=== PATIENT | male | born 1965 | race Caucasian/White ===

== ENCOUNTER 2016-06-05 20:24 | Inpatient (IN) | payer MEDICAID, OTHER ==
[~2016-06-05] VITALS: Ht 180.3 cm; Wt 129.3 kg
[~2016-06-05 20:24] MED LIST: ASPI-556 PO; CARV25TA32 PO; FERR324T4 PO; HYDR-4173 PO; NIFE10 PO
[2016-06-05] MEDS ORDERED: LISI-661 PO (21:08)
[2016-06-05] MEDS ORDERED: OMEG300C3 PO (21:08)
[2016-06-05] MEDS ORDERED: AMLO-511 PO (21:08)
[2016-06-05 21:17] LABS: GLUCOSE,POINT OF CARE 249 MG/DL (70-110)
[2016-06-05 21:45] LABS: BASOPHILS # (AUTO) 0.02 K/uL (0.00-0.20); BASOPHILS % (AUTO) 0.3 % (0.0-2.0); EOSINOPHILS % (AUTO) 4.31 % (1.0-6.0); HEMATOCRIT 24.4 % (41-53); LYMPHOCYTES # (AUTO) 1.5 K/uL (1.0-4.8); LYMPHOCYTES % (AUTO) 21.7 % (22.0-44.0); MEAN CORPUSCULAR HGB CONC 32.9 G/dL (31.0-37.0); MEAN CORPUSCULAR VOLUME 91 fL (80-100); MONOCYTES # (AUTO) 0.5 K/uL (0.1-1.0); MONOCYTES % (AUTO) 7.3 % (2.0-9.0); NEUTROPHILS # (AUTO) 4.7 K/uL (1.8-7.7); NEUTROPHILS % (AUTO) 66.4 % (40.0-70.0); PLATELET COUNT (AUTO) 173 K/uL (150-450); RED BLOOD CELL COUNT(AUTO) 2.68 MIL/uL (4.50-5.90); RED CELL DISTRIBUTION WIDTH 14.3 % (11.5-14.5)
[2016-06-05 21:57] LABS: ALBUMIN 3.3 g/dL (3.4-5.0); BILIRUBIN,TOTAL 0.1 mg/dL (0.1-1.0); CALCIUM, TOTAL 8.2 mg/dL (8.8-10.5); CREATININE 4.77 mg/dL (0.60-1.30); TOTAL PROTEIN, SERUM 7.9 g/dL (6.4-8.2)
[2016-06-05 21:59] LABS: POTASSIUM 6.7 mmol/L (3.5-5.1)
[2016-06-05 22:00] LABS: PROTHROMBIN TIME 10.4 SEC (9.4-11.6)
[2016-06-05] MEDS ORDERED: SODIUM POLYSTYRENE SULFONATE 15 GM/60 ML SUSPENSION BOTTLE PO ONE ×2 (23:00→23:15)
[2016-06-05] MEDS ORDERED: CALCIUM GLUCONATE 1,000 MG in DEXTROSE 5%-WATER 50 ML IV ONE (23:00)
[2016-06-05] MEDS ORDERED: INSULIN REGULAR, HUMAN 100 UNITS/ML SQ ONE (23:15)
[2016-06-05] MEDS ORDERED: ACETAMINOPHEN 325 MG TABLET PO PRN (23:15)
[2016-06-05] MEDS ORDERED: DEXTROSE 50%-WATER 25 GM/50 ML SYRINGE IVP ONE (23:15)
[2016-06-05] MEDS ORDERED: OxyCODONE HCL/ACETAMINOPHEN 5-325 MG TABLET PO PRN (23:15)
[2016-06-05] MEDS ORDERED: ZOLPIDEM TARTRATE 10 MG TABLET PO PRN (23:15)
[2016-06-05] MEDS ORDERED: SODIUM BICARBONATE 75 MEQ in SODIUM CHLORIDE 0.45% 1,000 ML IV ONE (23:15)
[2016-06-05] MEDS ORDERED: AmLODIPine BESYLATE 5 MG TABLET PO ONE (23:45)
[2016-06-05] MEDS: HEPARIN SODIUM,PORCINE 5,000 UNITS/ML VIAL SQ SCH (23:46)
[2016-06-06] VITALS (7 sets, daily range): BP systolic 135–158; BP diastolic 72–91
[2016-06-06] MEDS ORDERED: DEXTROSE 50%-WATER 25 GM/50 ML SYRINGE IVP PRN (00:30)
[2016-06-06 04:33] LABS: ALBUMIN 3.2 g/dL (3.4-5.0); BILIRUBIN,TOTAL 0.2 mg/dL (0.1-1.0); CALCIUM, TOTAL 8.3 mg/dL (8.8-10.5); CHOL/HDL RATIO 4.7 (4.2-7.3); CREATININE 4.3 mg/dL (0.60-1.30); POTASSIUM 5.8 mmol/L (3.5-5.1); THYROID STIMULATING HORMONE 1.92 uIU/mL (0.36-3.74); TOTAL PROTEIN, SERUM 7.5 g/dL (6.4-8.2)
[2016-06-06 04:45] LABS: BASOPHILS % (AUTO) 0.4 % (0.0-2.0); EOSINOPHILS % (AUTO) 4.8 % (1.0-6.0); HEMATOCRIT 23.8 % (41-53); HEMOGLOBIN 7.6 g/dL (13.5-17.5); LYMPHOCYTES # (AUTO) 1.6 K/uL (1.0-4.8); LYMPHOCYTES % (AUTO) 24.1 % (22.0-44.0); MEAN CORPUSCULAR HEMOGLOBIN 29.4 pg (26.0-34.0); MEAN CORPUSCULAR VOLUME 92 fL (80-100); MONOCYTES # (AUTO) 0.5 K/uL (0.1-1.0); MONOCYTES % (AUTO) 8.3 % (2.0-9.0); NEUTROPHILS # (AUTO) 4.1 K/uL (1.8-7.7); NEUTROPHILS % (AUTO) 62.4 % (40.0-70.0); PLATELET COUNT (AUTO) 179 K/uL (150-450); RED BLOOD CELL COUNT(AUTO) 2.59 MIL/uL (4.50-5.90); WHITE BLOOD COUNT (AUTO) 6.6 K/uL (4.5-11.0)
[2016-06-06 05:45] LABS: HEMOGLOBIN A1C 6.7 % (4.5-6.2)
[2016-06-06] MEDS: HEPARIN SODIUM,PORCINE 5,000 UNITS/ML VIAL SQ SCH ×2 (08:33→17:50)
[2016-06-06] MEDS: PANTOPRAZOLE SODIUM 40 MG DR TABLET PO SCH (08:33)
[2016-06-06] MEDS: FERROUS SULFATE 325 MG EC TABLET PO SCH (08:33)
[2016-06-06] MEDS: ASPIRIN 81 MG EC TABLET PO SCH (08:33)
[2016-06-06] MEDS ORDERED: AmLODIPine BESYLATE 5 MG TABLET PO SCH (09:00)
[2016-06-06] MEDS ORDERED: LISINOPRIL 10 MG TABLET PO SCH (09:00)
[2016-06-06 09:38] LABS: CALCIUM, TOTAL 7.8 mg/dL (8.8-10.5); CREATININE 3.94 mg/dL (0.60-1.30); MAGNESIUM 1.9 mg/dL (1.80-2.40); POTASSIUM 5.6 mmol/L (3.5-5.1)
[2016-06-06] MEDS ORDERED: SODIUM POLYSTYRENE SULFONATE 15 GM/60 ML SUSPENSION BOTTLE PO ONE (10:30)
[2016-06-06] MEDS: INSULIN ASPART 100 UNITS/ML SQ PRN ×2 (12:10→17:51)
[2016-06-06] MEDS: EPOETIN ALFA 10,000 UNITS/ML VIAL SQ SCH (12:37)
[2016-06-06] MEDS: SODIUM CHLORIDE 0.45% 1,000 ML IV SCH (13:30)
[2016-06-06] MEDS ORDERED: GuaiFENesin/CODEINE [SUGAR FREE] 200-20MG/10 ML SYRUP UDCUP PO PRN (13:30)
[2016-06-07] MEDS: HEPARIN SODIUM,PORCINE 5,000 UNITS/ML VIAL SQ SCH ×4 (00:15→23:36)
[2016-06-07 01:07] LABS: GLUCOSE COMMENT 1 Received Meds; GLUCOSE,POINT OF CARE 165 MG/DL (70-110)
[2016-06-07] MEDS: SODIUM CHLORIDE 0.45% 1,000 ML IV SCH (02:54)
[2016-06-07 04:05] VITALS: BP 169/79
[2016-06-07 07:09] VITALS: BP 153/77
[2016-06-07 08:09] LABS: BASOPHILS % (AUTO) 0.5 % (0.0-2.0); EOSINOPHILS % (AUTO) 4.4 % (1.0-6.0); HEMATOCRIT 22.1 % (41-53); HEMOGLOBIN 7.2 g/dL (13.5-17.5); LYMPHOCYTES # (AUTO) 1.9 K/uL (1.0-4.8); LYMPHOCYTES % (AUTO) 30.6 % (22.0-44.0); MEAN CORPUSCULAR HEMOGLOBIN 29.8 pg (26.0-34.0); MEAN CORPUSCULAR HGB CONC 32.7 G/dL (31.0-37.0); MEAN CORPUSCULAR VOLUME 91 fL (80-100); MONOCYTES # (AUTO) 0.5 K/uL (0.1-1.0); MONOCYTES % (AUTO) 8.2 % (2.0-9.0); NEUTROPHILS # (AUTO) 3.4 K/uL (1.8-7.7); NEUTROPHILS % (AUTO) 56.3 % (40.0-70.0); PLATELET COUNT (AUTO) 160 K/uL (150-450); RED BLOOD CELL COUNT(AUTO) 2.43 MIL/uL (4.50-5.90); RED CELL DISTRIBUTION WIDTH 13.9 % (11.5-14.5); WHITE BLOOD COUNT (AUTO) 6.1 K/uL (4.5-11.0)
[2016-06-07 08:27] LABS: ALBUMIN 2.8 g/dL (3.4-5.0); BILIRUBIN,TOTAL 0.2 mg/dL (0.1-1.0); CALCIUM, TOTAL 8.1 mg/dL (8.8-10.5); CREATININE 3.26 mg/dL (0.60-1.30); MAGNESIUM 1.8 mg/dL (1.80-2.40); PHOSPHORUS 4.8 mg/dL (2.5-4.9); POTASSIUM 4.2 mmol/L (3.5-5.1)
[2016-06-07] MEDS: PANTOPRAZOLE SODIUM 40 MG DR TABLET PO SCH (09:12)
[2016-06-07] MEDS: FERROUS SULFATE 325 MG EC TABLET PO SCH (09:12)
[2016-06-07] MEDS: ASPIRIN 81 MG EC TABLET PO SCH (09:12)
[2016-06-07] MEDS: AmLODIPine BESYLATE 10 MG TABLET PO SCH (09:12)
[2016-06-07 10:53] VITALS: BP 159/83
[2016-06-07 11:33] LABS: GLUCOSE COMMENT 1 Received Meds; GLUCOSE,POINT OF CARE 135 MG/DL (70-110)
[2016-06-07 11:33] LABS: GLUCOSE COMMENT 1 Received Meds; GLUCOSE,POINT OF CARE 121 MG/DL (70-110)
[2016-06-07] MEDS: SODIUM BICARBONATE 650 MG TABLET PO SCH ×2 (12:54→21:22)
[2016-06-07] MEDS: INSULIN ASPART 100 UNITS/ML SQ PRN ×3 (12:54→20:30)
[2016-06-07 14:50] VITALS: BP 141/82
[2016-06-07 17:47] LABS: GLUCOSE COMMENT 1 Received Meds; GLUCOSE,POINT OF CARE 170 MG/DL (70-110)
[2016-06-07 20:15] VITALS: BP 138/82
[2016-06-07 21:42] LABS: GLUCOSE COMMENT 1 Received Meds; GLUCOSE,POINT OF CARE 195 MG/DL (70-110)
[2016-06-07 23:56] VITALS: BP 167/81
[2016-06-08 03:42] LABS: GLUCOSE,POINT OF CARE 145 MG/DL (70-110)
[2016-06-08 05:49] VITALS: BP 161/90
[2016-06-08 06:13] LABS: BASOPHILS % (AUTO) 0.6 % (0.0-2.0); EOSINOPHILS % (AUTO) 4.8 % (1.0-6.0); HEMATOCRIT 23.2 % (41-53); HEMOGLOBIN 7.6 g/dL (13.5-17.5); LYMPHOCYTES # (AUTO) 2.4 K/uL (1.0-4.8); LYMPHOCYTES % (AUTO) 31.3 % (22.0-44.0); MEAN CORPUSCULAR HEMOGLOBIN 29.8 pg (26.0-34.0); MEAN CORPUSCULAR HGB CONC 32.7 G/dL (31.0-37.0); MEAN CORPUSCULAR VOLUME 91 fL (80-100); MONOCYTES # (AUTO) 0.7 K/uL (0.1-1.0); MONOCYTES % (AUTO) 8.6 % (2.0-9.0); NEUTROPHILS # (AUTO) 4.3 K/uL (1.8-7.7); NEUTROPHILS % (AUTO) 54.7 % (40.0-70.0); PLATELET COUNT (AUTO) 171 K/uL (150-450); RED BLOOD CELL COUNT(AUTO) 2.55 MIL/uL (4.50-5.90); RED CELL DISTRIBUTION WIDTH 13.5 % (11.5-14.5); WHITE BLOOD COUNT (AUTO) 7.8 K/uL (4.5-11.0)
[2016-06-08 07:04] LABS: ALBUMIN 2.9 g/dL (3.4-5.0); BILIRUBIN,TOTAL 0.1 mg/dL (0.1-1.0); CALCIUM, TOTAL 8.1 mg/dL (8.8-10.5); CREATININE 3.01 mg/dL (0.60-1.30); POTASSIUM 4.4 mmol/L (3.5-5.1)
[2016-06-08 07:51] VITALS: BP 179/89
[2016-06-08] MEDS: AmLODIPine BESYLATE 10 MG TABLET PO SCH (08:31)
[2016-06-08] MEDS: SODIUM BICARBONATE 650 MG TABLET PO SCH ×2 (08:31→20:52)
[2016-06-08] MEDS: PANTOPRAZOLE SODIUM 40 MG DR TABLET PO SCH (08:31)
[2016-06-08] MEDS: ASPIRIN 81 MG EC TABLET PO SCH (08:31)
[2016-06-08] MEDS: HEPARIN SODIUM,PORCINE 5,000 UNITS/ML VIAL SQ SCH ×2 (08:31→17:29)
[2016-06-08] MEDS: FERROUS SULFATE 325 MG EC TABLET PO SCH (08:31)
[2016-06-08] MEDS: INSULIN ASPART 100 UNITS/ML SQ PRN ×3 (12:00→20:55)
[2016-06-08 12:02] VITALS: BP 165/81
[2016-06-08 17:20] VITALS: BP 166/75
[2016-06-08 20:15] VITALS: BP 159/79
[2016-06-08 23:40] VITALS: BP 158/87
[2016-06-09] VITALS (11 sets, daily range): BP systolic 137–169; BP diastolic 66–88
[2016-06-09 00:37] LABS: GLUCOSE COMMENT 1 Received Meds; GLUCOSE,POINT OF CARE 176 MG/DL (70-110)
[2016-06-09 00:37] LABS: GLUCOSE COMMENT 1 Received Meds; GLUCOSE,POINT OF CARE 160 MG/DL (70-110)
[2016-06-09] MEDS: HEPARIN SODIUM,PORCINE 5,000 UNITS/ML VIAL SQ SCH ×3 (00:50→17:38)
[2016-06-09 06:55] LABS: BASOPHILS % (AUTO) 0.4 % (0.0-2.0); EOSINOPHILS % (AUTO) 4.5 % (1.0-6.0); HEMATOCRIT 22.5 % (41-53); HEMOGLOBIN 7.3 g/dL (13.5-17.5); LYMPHOCYTES # (AUTO) 2.5 K/uL (1.0-4.8); LYMPHOCYTES % (AUTO) 30.8 % (22.0-44.0); MEAN CORPUSCULAR HEMOGLOBIN 29.5 pg (26.0-34.0); MEAN CORPUSCULAR HGB CONC 32.4 G/dL (31.0-37.0); MEAN CORPUSCULAR VOLUME 91 fL (80-100); MONOCYTES # (AUTO) 0.7 K/uL (0.1-1.0); MONOCYTES % (AUTO) 8.3 % (2.0-9.0); NEUTROPHILS # (AUTO) 4.5 K/uL (1.8-7.7); PLATELET COUNT (AUTO) 171 K/uL (150-450); RED BLOOD CELL COUNT(AUTO) 2.47 MIL/uL (4.50-5.90); RED CELL DISTRIBUTION WIDTH 13.7 % (11.5-14.5); WHITE BLOOD COUNT (AUTO) 8.1 K/uL (4.5-11.0)
[2016-06-09 07:23] LABS: ALBUMIN 2.7 g/dL (3.4-5.0); BILIRUBIN,TOTAL 0.2 mg/dL (0.1-1.0); CALCIUM, TOTAL 8.2 mg/dL (8.8-10.5); CREATININE 3.02 mg/dL (0.60-1.30); POTASSIUM 4.1 mmol/L (3.5-5.1); TOTAL PROTEIN, SERUM 6.8 g/dL (6.4-8.2)
[2016-06-09 07:32] LABS: GLUCOSE,POINT OF CARE 103 MG/DL (70-110)
[2016-06-09] MEDS: ASPIRIN 81 MG EC TABLET PO SCH (08:06)
[2016-06-09] MEDS: PANTOPRAZOLE SODIUM 40 MG DR TABLET PO SCH (08:06)
[2016-06-09] MEDS: SODIUM BICARBONATE 650 MG TABLET PO SCH (08:07)
[2016-06-09] MEDS: FERROUS SULFATE 325 MG EC TABLET PO SCH (08:07)
[2016-06-09] MEDS: AmLODIPine BESYLATE 10 MG TABLET PO SCH (08:07)
[2016-06-09] MEDS: EPOETIN ALFA 10,000 UNITS/ML VIAL SQ SCH (08:08)
[2016-06-09] MEDS ORDERED: SODIUM BICARBONATE 650 MG TABLET PO SCH (09:00)
[2016-06-09] MEDS ORDERED: LISINOPRIL 5 MG TABLET PO SCH (09:00)
[2016-06-09] MEDS ORDERED: HydrALAZINE HCL 20 MG/ML VIAL IVP ONE (11:00)
[2016-06-09] MEDS: INSULIN ASPART 100 UNITS/ML SQ PRN ×2 (12:00→17:44)
[2016-06-09] MEDS ORDERED: SODIUM CHLORIDE 0.9% 250 ML IV ONE (13:06)
[2016-06-09] MEDS ORDERED: FERR-89 PO (18:37)
[2016-06-09] MEDS ORDERED: LISI-660 PO (18:38)
[2016-06-09] MEDS ORDERED: SODI650T PO (18:39)
[2016-06-09 23:21] LABS: GLUCOSE COMMENT 1 Received Meds; GLUCOSE,POINT OF CARE 147 MG/DL (70-110)
[2016-06-10 07:22] LABS: ALBUMIN (IFE & ELECTROPHOR) 3.4 g/dL (2.9-4.4); ALBUMIN/GLOBULIN RATIO (IFE) 1.2 (0.7-1.7); ALPHA-2 (IFE & PEP) 0.7 g/dL (0.4-1.0); IGG (IMMUNOFIXATION) 1335 mg/dL (700-1600); M-SPIKE (IEP) Not Observed g/dL (Not Observed); TOTAL PROTEIN 6.3 g/dL (6.0-8.5)
[2016-06-10 15:54] LABS: ALBUMIN URINE (ELP24) 49.2 %; ALPHA-1 URINE (ELP24) 4.5 %; ALPHA-2 URINE(ELP24) 9.8 %; BETA URINE(ELP24) 13.7 %; GAMMA URINE(ELP24) 22.8 %; TOTAL PROTEIN URINE 236.3 mg/dL (Not Estab.)
[2016-06-11 07:35] LABS: COMPLEMENT C3 123 mg/dL (82-167); COMPLEMENT C4 33 mg/dL (14-44)
[2016-06-16 04:26] LABS: GLUCOSE COMMENT 1 Received Meds; GLUCOSE,POINT OF CARE 154 MG/DL (70-110)
[2016-06-27 16:44] LABS: GLUCOSE,POINT OF CARE 109 MG/DL (70-110)
[2016-06-27 16:44] LABS: GLUCOSE COMMENT 1 Received Meds; GLUCOSE,POINT OF CARE 170 MG/DL (70-110)
[2016-06-27 16:44] LABS: GLUCOSE,POINT OF CARE 152 MG/DL (70-110)
[2016-06-27 16:44] LABS: GLUCOSE,POINT OF CARE 107 MG/DL (70-110)
== END 2016-06-09 19:45 | disposition home or self-care (01) | DRG 460 ==
LOC: EMS 20:25 → 5S 23:38
PROVIDERS: ADMIT Hospitalist; ATTEND Hospitalist
PROC: 30233N1 Transfusion of Nonautologous Red Blood Cells into Peripheral Vein, Percutaneous Approach (ICD-10-PCS; principal; 2016-06-09)
DX: N17.9 Acute kidney failure, unspecified (principal); E87.0 Hyperosmolality and hypernatremia; E11.21 Type 2 diabetes mellitus with diabetic nephropathy; E44.1 Mild protein-calorie malnutrition; E87.1 Hypo-osmolality and hyponatremia; K92.2 Gastrointestinal hemorrhage, unspecified; I13.10 Hypertensive heart and chronic kidney disease without heart failure, with stage 1 through stage 4 chronic kidney disease, or unspecified chronic kidney disease; E11.22 Type 2 diabetes mellitus with diabetic chronic kidney disease; E87.5 Hyperkalemia; N18.9 Chronic kidney disease, unspecified; E78.5 Hyperlipidemia, unspecified; E88.09 Other disorders of plasma-protein metabolism, not elsewhere classified; I25.10 Atherosclerotic heart disease of native coronary artery without angina pectoris; I51.9 Heart disease, unspecified; D63.8 Anemia in other chronic diseases classified elsewhere; E11.319 Type 2 diabetes mellitus with unspecified diabetic retinopathy without macular edema; E86.0 Dehydration; Z79.82 Long term (current) use of aspirin; Z88.0 Allergy status to penicillin; Z68.39 Body mass index [BMI] 39.0-39.9, adult; Z79.4 Long term (current) use of insulin
CPT/HCPCS: 76770; 81050; 82271; 82570; 82575; 82607; 82746; 82784; 82962; 83036; 83540; 83550; 83735; 84100; 84155; 84156; 84165; 84166; 84300; 84443; 84540; 84560; 86160; 86334; 86850; 86900; 86901; 86920; 93005; 96365; 96372; 96374; 96375; 99285; J0360; J0610; J0885; J1644; J1815; J3490; J7050; J7060; P9016